=== PATIENT | female | born 1985 | race Caucasian/White ===

== ENCOUNTER 2022-10-05 22:13 | Emergency (ER) | payer OTHER ==
[2022-10-05 22:22] VITALS: BP 126/78; PULSE 83; RESP 18; TEMP 98.2; BMI 27.3
[2022-10-05] MEDS ORDERED: ACETAMINOPHEN 500 MG TABLET (FP) PO ONE (23:10)
[2022-10-05] MEDS ORDERED: KETOROLAC TROMETHAMINE 15 MG/ML VIAL IM ONE (23:10)
[2022-10-05] MEDS ORDERED: KETOROLAC TROMETHAMINE 15 MG/ML VIAL ONE (23:19)
[2022-10-05] MEDS ORDERED: ACETAMINOPHEN 500 MG TABLET (FP) ONE (23:22)
== END 2022-10-06 00:16 | disposition home or self-care (01) ==
LOC: JER 22:13
PROC: 3E0233Z Introduction of Anti-inflammatory into Muscle, Percutaneous Approach (ICD-10-PCS; principal; 2022-10-05)
DX: M79.632 Pain in left forearm (principal); R20.2 Paresthesia of skin; R53.1 Weakness; M25.522 Pain in left elbow; G56.02 Carpal tunnel syndrome, left upper limb
CPT/HCPCS: 73070-TC-LT-FY; 99284-25